=== PATIENT | female | born 1990 | race Caucasian/White ===

== ENCOUNTER 2018-09-04 20:45 | Outpatient (CLI) | payer OTHER | END 2018-09-04 22:15 | disposition home or self-care (01) | LOC: OBT 20:45 → L-D 20:47 → OBT 22:15 | DX: O26.893 Other specified pregnancy related conditions, third trimester (principal); R50.9 Fever, unspecified; M54.9 Dorsalgia, unspecified; Z3A.35 35 weeks gestation of pregnancy | CPT/HCPCS: Z7500 ==

== ENCOUNTER 2018-09-04 22:21 | Emergency (ER) | payer OTHER | END 2018-09-05 01:04 | disposition home or self-care (01) | LOC: FTE 22:21 | DX: O99.89 Other specified diseases and conditions complicating pregnancy, childbirth and the puerperium (principal); R05 Cough; R09.81 Nasal congestion; Z3A.35 35 weeks gestation of pregnancy | CPT/HCPCS: 99282; Z7502 ==

== ENCOUNTER 2018-09-21 12:30 | Inpatient (IN) | payer OTHER ==
[2018-09-21 13:47] LABS: ADD MAN DIFF? NO
[2018-09-21 13:55] LABS: BASOPHILS % 0.2 % (0.0-2.0); EOSINOPHILS # 0.1 10^3/ul (0.0-0.5); EOSINOPHILS % 0.9 % (0.0-7.0); HEMOGLOBIN 13.4 g/dl (12.0-16.0); LYMPHOCYTES # 1.9 10^3/ul (0.8-2.9); LYMPHOCYTES % 21.3 % (15.0-51.0); MEAN CORPUSCULAR HEMOGLOBIN 30.8 pg (29.0-33.0); MEAN CORPUSCULAR HGB CONC 33.5 g/dl (32.0-37.0); MEAN PLATELET VOLUME 11.2 fl (7.4-10.4); MONOCYTE # 0.5 10^3/ul (0.3-0.9); MONOCYTES % 5.9 % (0.0-11.0); NEUTROPHIL # 6.3 10^3/ul (1.6-7.5); NEUTROPHILS % 71.2 % (39.0-77.0); PLATELET COUNT 234 10^3/UL (140-415); RED BLOOD COUNT 4.35 10^6/ul (4.20-5.40); RED CELL DISTRIBUTION WIDTH 13.5 % (11.5-14.5)
[2018-09-21 13:55] LABS: WHITE BLOOD COUNT 8.8 10^3/ul (4.8-10.8)
[2018-09-21] MEDS: LACTATED RINGER'S 1,000 ML IV ×2 (14:07→21:30)
[2018-09-21 14:19] LABS: ALANINE AMINOTRANSFERASE 11 IU/L (13-69); ALBUMIN 3.4 g/dl (3.3-4.9); ALBUMIN/GLOBULIN RATIO 0.91; ALKALINE PHOSPHATASE 203 IU/L (42-121); ANION GAP 6 (5-13); ASPARTATE AMINO TRANSFERASE 16 IU/L (15-46); BILIRUBIN,INDIRECT 0.2 mg/dl (0-1.1); BILIRUBIN,TOTAL 0.2 mg/dl (0.2-1.3); BLOOD UREA NITROGEN 7 mg/dl (7-20); CALCIUM 9.7 mg/dl (8.4-10.2); CARBON DIOXIDE 24 mmol/L (21-31); CHLORIDE 109 mmol/L (97-110); CREATININE 0.51 mg/dl (0.44-1.00); Estimated GFR > 60 mL/min (>60); GLUCOSE 80 mg/dl (70-220); POTASSIUM 4.2 mmol/L (3.5-5.1); SODIUM 139 mmol/L (135-144); TOTAL PROTEIN 7.1 g/dl (6.1-8.1)
[2018-09-21 14:54] LABS: ADD UMIC YES; UR ASCORBIC ACID NEGATIVE (NEGATIVE); UR BACTERIA FEW /HPF (NONE SEEN); UR BILIRUBIN (Dip) NEGATIVE (NEGATIVE); UR BLOOD (Dip) NEGATIVE (NEGATIVE); UR CLARITY CLEAR (CLEAR); UR COLOR YELLOW (YELLOW); UR GLUCOSE (Dip) NEGATIVE (NEGATIVE); UR KETONES (Dip) NEGATIVE (NEGATIVE); UR LEUKOCYTE ESTERASE (Dip) 2+ Leu/ul (NEGATIVE); UR NITRITE (Dip) NEGATIVE (NEGATIVE); UR RBC 1 /HPF (0-5); UR SPECIFIC GRAVITY (Dip) 1.011 (1.003-1.030); UR SQUAMOUS EPITHELIAL CELL FEW /HPF (FEW); UR TOTAL PROTEIN (Dip) NEGATIVE (NEGATIVE); UR UROBILINOGEN (Dip) NEGATIVE (NEGATIVE); UR WBC 2 /HPF (0-5)
[2018-09-21] MEDS ORDERED: LACTATED RINGER'S 1,000 ML IV (15:13)
[2018-09-21] MEDS ORDERED: ACETAMINOPHEN 325 MG TAB PO (15:30)
[2018-09-22] MEDS: LACTATED RINGER'S 1,000 ML IV ×2 (01:35→09:33)
== END 2018-09-22 12:15 | disposition home or self-care (01) | DRG 833 ==
LOC: OBT 12:30 → L-D 12:30 → OBT 14:50 → L-D 14:50 → PP1 15:38
DX: O99.283 Endocrine, nutritional and metabolic diseases complicating pregnancy, third trimester (principal); E86.0 Dehydration; Z3A.37 37 weeks gestation of pregnancy
CPT/HCPCS: 36415; 76815; 76818; 80053; 81001; 85025; 87086; 96360; 96361

== ENCOUNTER 2018-09-26 08:48 | Inpatient (IN) | payer OTHER ==
[2018-09-26] MEDS ORDERED: LACTATED RINGER'S 1,000 ML IV (09:00)
[2018-09-26] MEDS ORDERED: CARBOPROST 250 MCG INJ IM ×2 (09:00→22:30)
[2018-09-26] MEDS ORDERED: METHYLERGONOVINE 0.2 MG INJ IM ×2 (09:00→22:30)
[2018-09-26] MEDS ORDERED: MISOPROSTOL 200 MCG TAB PR ×2 (09:00→22:30)
[2018-09-26] MEDS ORDERED: LIDOCAINE 1% (MPF) 30 ML INJ INJ (09:00)
[2018-09-26] MEDS ORDERED: OXYTOCIN 30 UNITS/LR 500 ML IV ×2 (09:00→22:30)
[2018-09-26] MEDS: LACTATED RINGER'S 1,000 ML IV ×2 (09:15→15:50)
[2018-09-26 09:32] LABS: ADD MAN DIFF? NO; BASOPHILS % 0.3 % (0.0-2.0); EOSINOPHILS # 0.1 10^3/ul (0.0-0.5); EOSINOPHILS % 1.2 % (0.0-7.0); HEMATOCRIT 40.2 % (37.0-47.0); HEMOGLOBIN 13.5 g/dl (12.0-16.0); LYMPHOCYTES # 2.1 10^3/ul (0.8-2.9); LYMPHOCYTES % 18.2 % (15.0-51.0); MEAN CORPUSCULAR HGB CONC 33.6 g/dl (32.0-37.0); MEAN CORPUSCULAR VOLUME 92.4 fl (82.0-101.0); MEAN PLATELET VOLUME 11.1 fl (7.4-10.4); MONOCYTE # 0.7 10^3/ul (0.3-0.9); MONOCYTES % 5.9 % (0.0-11.0); NEUTROPHIL # 8.6 10^3/ul (1.6-7.5); PLATELET COUNT 242 10^3/UL (140-415); RED BLOOD COUNT 4.35 10^6/ul (4.20-5.40); RED CELL DISTRIBUTION WIDTH 13.4 % (11.5-14.5)
[2018-09-26 09:32] LABS: WHITE BLOOD COUNT 11.6 10^3/ul (4.8-10.8)
[2018-09-26 09:50] LABS: INR 0.96; PROTIME 12.9 Sec (11.9-14.9)
[2018-09-26 09:51] LABS: PARTIAL THROMBOPLASTIN TIME 29.2 Sec (23.0-35.0)
[2018-09-26 10:07] LABS: ADD UMIC YES; UR ASCORBIC ACID NEGATIVE (NEGATIVE); UR BACTERIA FEW /HPF (NONE SEEN); UR BILIRUBIN (Dip) NEGATIVE (NEGATIVE); UR BLOOD (Dip) 2+ mg/dL (NEGATIVE); UR CLARITY CLEAR (CLEAR); UR COLOR YELLOW (YELLOW); UR GLUCOSE (Dip) NEGATIVE (NEGATIVE); UR KETONES (Dip) NEGATIVE (NEGATIVE); UR LEUKOCYTE ESTERASE (Dip) TRACE Leu/ul (NEGATIVE); UR MUCUS FEW /HPF (NONE SEEN); UR NITRITE (Dip) NEGATIVE (NEGATIVE); UR RBC 2 /HPF (0-5); UR SQUAMOUS EPITHELIAL CELL FEW /HPF (FEW); UR TOTAL PROTEIN (Dip) NEGATIVE (NEGATIVE); UR UROBILINOGEN (Dip) NEGATIVE (NEGATIVE); UR WBC 3 /HPF (0-5)
[2018-09-26 11:42] LABS: HEPATITIS B SURFACE ANTIGEN NEGATIVE (NEGATIVE)
[2018-09-26 19:47] LABS: RAPID PLASMA REAGIN NONREACTIVE (NR)
[2018-09-26] MEDS: BUTORPHANOL 2 MG INJ IV (20:58)
[2018-09-26] MEDS: OXYTOCIN 30 UNITS/LR 500 ML IV ×3 (20:59→22:15)
[2018-09-26] MEDS: LACTATED RINGER'S 1,000 ML IV* (22:08)
[2018-09-26] MEDS ORDERED: METHYLERGONOVINE 0.2 MG TAB PO (22:30)
[2018-09-26] MEDS ORDERED: WITCH HAZEL/GLYCERIN PAD PR (22:30)
[2018-09-26] MEDS ORDERED: IBUPROFEN 600 MG TAB PO (22:30)
[2018-09-26] MEDS ORDERED: BENZOCAINE 20% 56 ML SPRAY TOP (22:30)
[2018-09-26] MEDS ORDERED: HYDROCODONE/APAP (5/325) TAB PO ×2 (22:30)
[2018-09-26] MEDS ORDERED: ZOLPIDEM 5 MG TAB PO (22:30)
[2018-09-26] MEDS ORDERED: MAGNESIUM HYDROXIDE 30ML CUP PO (22:30)
[2018-09-26] MEDS ORDERED: DIPHENHYDRAMINE 25 MG CAP PO (22:30)
[2018-09-26] MEDS ORDERED: NA PHOSPHATE/BIPHOS 133 ML ENEMA PR (22:30)
[2018-09-26] MEDS ORDERED: ONDANSETRON 4 MG INJ IV (22:30)
[2018-09-27] MEDS: OXYTOCIN 30 UNITS/LR 500 ML IV (00:07)
[2018-09-27] MEDS: LANOLIN HPA 1 PKT TOP (00:15)
[2018-09-27] MEDS: IBUPROFEN 600 MG TAB PO (00:15)
[2018-09-27] MEDS: LACTATED RINGER'S 1,000 ML IV (01:00)
[2018-09-27] MEDS: LACTATED RINGER'S 1,000 ML IV* (06:08)
[2018-09-27 07:22] LABS: ADD MAN DIFF? NO
[2018-09-27 07:24] LABS: WHITE BLOOD COUNT 13.1 10^3/ul (4.8-10.8)
[2018-09-27 07:24] LABS: BASOPHILS % 0.3 % (0.0-2.0); EOSINOPHILS # 0.1 10^3/ul (0.0-0.5); EOSINOPHILS % 0.9 % (0.0-7.0); HEMATOCRIT 36.1 % (37.0-47.0); HEMOGLOBIN 12.2 g/dl (12.0-16.0); LYMPHOCYTES # 2.8 10^3/ul (0.8-2.9); LYMPHOCYTES % 21.5 % (15.0-51.0); MEAN CORPUSCULAR HEMOGLOBIN 31.3 pg (29.0-33.0); MEAN CORPUSCULAR HGB CONC 33.8 g/dl (32.0-37.0); MEAN CORPUSCULAR VOLUME 92.6 fl (82.0-101.0); MEAN PLATELET VOLUME 11.3 fl (7.4-10.4); MONOCYTES % 7.9 % (0.0-11.0); NEUTROPHILS % 68.8 % (39.0-77.0); PLATELET COUNT 213 10^3/UL (140-415); RED CELL DISTRIBUTION WIDTH 13.6 % (11.5-14.5)
[2018-09-27] MEDS: SENNA/DOCUSATE NA (8.6MG/50MG) TAB PO ×2 (09:20→21:27)
[2018-09-28] MEDS: IBUPROFEN 600 MG TAB PO (01:23)
[2018-09-28] MEDS: DIPHTH/TET/ACEL PERTUSS (ADULT) 0.5 ML VIAL IM* (09:00)
[2018-09-28] MEDS: SENNA/DOCUSATE NA (8.6MG/50MG) TAB PO (09:02)
[2018-09-28] MEDS: MEASLES,MUMPS,RUBELLA VACCINE INJ SC* (09:02)
[2018-09-28] MEDS: VARICELLA VACCINE LIVE/PF 1,350 UNIT/0.5 ML ML SC* (09:03)
== END 2018-09-28 17:27 | disposition home or self-care (01) | DRG 807 ==
LOC: OBT 08:48 → L-D 08:50 → OBT 09:00 → L-D 09:09 → PP1 23:37
PROVIDERS: Obstetrics & Gynecology
PROC: 10E0XZZ Delivery of Products of Conception, External Approach (ICD-10-PCS; principal; 2018-09-26)
DX: O80 Encounter for full-term uncomplicated delivery (principal); Z37.0 Single live birth; Z3A.38 38 weeks gestation of pregnancy
CPT/HCPCS: 81001; 85025; 85610; 85730; 86592; 86850; 86900; 86901; 87086; 87340; 90716

== ENCOUNTER → 2019-02-28 | Emergency (ER) | payer OTHER | END | disposition home or self-care (01) | LOC: FTE 20:40 | DX: S46.811A Strain of other muscles, fascia and tendons at shoulder and upper arm level, right arm, initial encounter (principal); X50.0XXA Overexertion from strenuous movement or load, initial encounter; Y92.9 Unspecified place or not applicable | CPT/HCPCS: 99283; Z7502 ==